=== PATIENT | male | born 1990 | race Caucasian/White ===

== ENCOUNTER 2017-09-24 00:45 | Emergency (ER) | payer OTHER ==
[~2017-09-24] VITALS: Ht 167.6 cm; Wt 68.0 kg
[~2017-09-24 00:45] MED LIST: AMOXICILLIN 50500 MG PO; NAPROSYN500 MG PO; NORCO 5-325 TA1 EACH PO; PAIN & FEVER325 MG PO; PENICILLIN VK500 M1 PO; PENICILLIN VK500 MG PO; PHENERGAN 25 MG25 M1 PO
[2017-09-24] MEDS ORDERED: NAPROSYN500 MG PO (02:54)
[2017-09-24] MEDS ORDERED: AMOXICILLIN 50500 M1 PO (02:54)
== END 2017-09-24 03:09 | disposition home or self-care (01) ==
LOC: ER 00:45
DX: K02.9 Dental caries, unspecified (principal); F17.210 Nicotine dependence, cigarettes, uncomplicated

== ENCOUNTER 2020-05-04 04:18 | Emergency (ER) | payer OTHER ==
[~2020-05-04] VITALS: Ht 170.2 cm; Wt 65.8 kg
[~2020-05-04 04:18] MED LIST changes: +AMOXICILLIN 50500 M1 PO
[2020-05-04 04:21] VITALS: BP 143/101
[2020-05-04] MEDS ORDERED: NORCO 5-325 TA1 EAC2 PO (04:37)
[2020-05-04] MEDS ORDERED: PENICILLIN VK500 M1 PO (04:37)
== END 2020-05-04 04:49 | disposition home or self-care (01) ==
LOC: ER 04:18
DX: K04.7 Periapical abscess without sinus (principal); F17.210 Nicotine dependence, cigarettes, uncomplicated